=== PATIENT | male | born 1960 ===

== ENCOUNTER 2022-02-02 14:37 | Inpatient (IN) | payer BC, OTHER ==
[2022-02-02] MEDS ORDERED: SODIUM CHLORIDE 0.9% 500 ML 500 ML IV STA (14:39)
[2022-02-02] MEDS ORDERED: HYDROmorphone 0.5 MG/0.5 ML SYRINGE IVP STA ×2 (14:39→15:15)
[2022-02-02] MEDS ORDERED: DIPH,PERTUS(ACELL)TETVAC-LF 0.5 ML VIAL IM ONE ×2 (14:39→23:29)
[2022-02-02] MEDS ORDERED: SODIUM CHLORIDE 0.9% 1,000 ML IV STA (14:39)
[2022-02-02] MEDS ORDERED: TRANEXAMIC ACID IN NACL,ISO-OS 1,000 MG in SALINE 1 100ML.BAG IVPB ONE (14:53)
--- NOTE | 2022-02-02 14:53 | XR ---
EXAMINATION TYPE: XR pelvis AP view DATE OF EXAM: 02/02/2022 COMPARISON: NONE HISTORY: Pain The osseous structures are intact and the joint spaces are preserved. No acute fracture is seen. Vi sualized bowel gas pattern is nonspecific. Postsurgical change overlying the left pelvis. Benign regan earing intraosseous lesion of the left femoral neck. Hypertrophic change of the spine. IMPRESSION: 1. No acute fracture. 2. Benign appearing left femoral neck intraosseous lesion could be correlated with bone scan.
--- NOTE | 2022-02-02 14:54 | XR ---
EXAMINATION TYPE: XR chest 1V portable DATE OF EXAM: 02/02/2022 COMPARISON: NONE HISTORY: Pain TECHNIQUE: Single frontal view of the chest is obtained. FINDINGS: Heart is enlarged there is a limited inspiration. No evidence of pleural effusion or pneum othorax. Visualized osseous structures are grossly intact. Atherosclerotic change of the aorta. IMPRESSION: Cardiomegaly
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
[2022-02-02 15:18] LABS: Basophils % (A) 0 %; Eosinophils # (A) 0.1 k/uL (0-0.7); Eosinophils % (A) 1 %; HCT 28.5 % (39.0-53.0); HGB 9.5 gm/dL (13.0-17.5); Lymphocytes # (A) 1.1 k/uL (1.0-4.8); Lymphocytes % (A) 9 %; MCH 32.4 pg (25.0-35.0); MCHC 33.2 g/dL (31.0-37.0); MCV 97.6 fL (80.0-100.0); Mean Platelet Volume 8.2; Monocytes # (A) 0.3 k/uL (0-1.0); Monocytes % (A) 3 %; Neutrophils # (A) 10.6 k/uL (1.3-7.7); Neutrophils % (A) 87 %; Platelet Count 168 k/uL (150-450); RBC 2.91 m/uL (4.30-5.90); RDW 13.4 % (11.5-15.5); WBC 12.2 k/uL (3.8-10.6)
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
[2022-02-02 15:34] LABS: INR 1.1 (<1.2); Partial Thromboplastin Time 21.9 sec (22.0-30.0); Prothrombin Time 11.9 sec (9.0-12.0)
[2022-02-02] MEDS ORDERED: ePHEDrine 50 MG/ML 1 ML VIAL ONE (15:40)
[2022-02-02] MEDS ORDERED: SUCCINYLCHOLINE CHLORIDE 200 MG/10 ML VIAL IV ONE (15:40)
[2022-02-02] MEDS ORDERED: ALBUMIN HUMAN 5% (25gm) 500 ML VIAL IVPB ONE (15:40)
[2022-02-02] MEDS ORDERED: fentaNYL (PF) 50 MCG/ML 2 ML AMP ONE (15:40)
[2022-02-02] MEDS ORDERED: ETOMIDATE 2 MG/ML 10 ML VIAL ONE (15:40)
[2022-02-02] MEDS ORDERED: ROCURONIUM 10 MG/ML (5 ML VIAL) IV ONE (15:40)
[2022-02-02] MEDS ORDERED: SODIUM BICARB 8.4% 50 ML SYR (1 MEQ/ML) ONE (15:40)
[2022-02-02] MEDS ORDERED: CALCIUM CHLORIDE 100 MG/ML 10 ML SYRINGE ONE (15:40)
[2022-02-02] MEDS ORDERED: SODIUM CHLORIDE 0.9% IRRIG 1,000 ML BTL IRRIGATION ONE (15:40)
[2022-02-02] MEDS ORDERED: MIDAZOLAM 2 MG/2 ML VIAL ONE (15:40)
[2022-02-02] MEDS ORDERED: HEPARIN SODIUM,PORCINE 10,000 UNIT/ML 1 ML VIAL ONE (15:40)
[2022-02-02] MEDS ORDERED: PHENYLEPHRINE-0.9% NACL SYG 1,000 MCG/10 ML SYRINGE ONE (15:40)
[2022-02-02] MEDS ORDERED: WATER FOR INJECTION, STERILE 10 ML VIAL IV ONE (15:40)
[2022-02-02] MEDS ORDERED: SODIUM CHLORIDE 0.9% 1,000 ML IV ONE ×3 (15:42→16:53)
[2022-02-02] MEDS ORDERED: SODIUM CHLORIDE 0.9% 50 ML with ceFAZolin 2,000 MG IV ONE ×2 (15:42)
[2022-02-02] MEDS ORDERED: LACTATED RINGERS 1,000 ML IV ONE ×4 (15:42→18:48)
[2022-02-02 15:48] LABS: ALT 16 U/L (4-49); AST 24 U/L (17-59); African American GFR (CKD) 82 (>60 ml/min/1.73 sqM); Albumin 2.4 g/dL (3.5-5.0); Alcohol <10 mg/dL; Alkaline Phosphatase 52 U/L (38-126); Anion Gap 4 mmol/L; Blood Urea Nitrogen 16 mg/dL (9-20); Calcium 7.3 mg/dL (8.4-10.2); Carbon Dioxide 21 mmol/L (22-30); Chloride 107 mmol/L (98-107); Glucose 215 mg/dL (74-99); Non-African American GFR(CKD) 71 (>60 ml/min/1.73 sqM); Potassium 3.4 mmol/L (3.5-5.1); Sodium 132 mmol/L (137-145); Total Bilirubin 0.2 mg/dL (0.2-1.3); Total Protein 4.3 g/dL (6.3-8.2)
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
[2022-02-02 16:24] LABS: ABG HCO3 15 mmol/L (21-25); ABG Oxygen Saturation 99.8 % (94-97); ABG PCO2 39 mmHg (35-45); ABG PO2 197 mmHg (83-108); ABG TCO2 16 mmol/L (19-24); Allen Test Performed? Yes
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
[2022-02-02] MEDS ORDERED: METHYLENE BLUE 10 MG/ML (10 ML VIAL) IRRIGATION ONE ×2 (18:33)
[2022-02-02] MEDS ORDERED: ACETAMINOPHEN IV (For NPO) 1,000 MG in EMPTY BAG 1 BAG IVPB PRN (18:48)
[2022-02-02] MEDS ORDERED: NALOXONE 0.4 MG/ML 1 ML VIAL IV PRN (18:48)
[2022-02-02] MEDS ORDERED: ONDANSETRON 4 MG/2 ML VIAL IVP PRN (18:48)
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
[2022-02-02 19:02] LABS: Glucose,Whole Blood 100 mg/dL (70-110)
[2022-02-02 19:13] LABS: ABG Base Excess -5.8 mmol/L; ABG HCO3 21 mmol/L (21-25); ABG Oxygen Saturation 99.7 % (94-97); ABG PCO2 46 mmHg (35-45); ABG PH 7.27 (7.35-7.45); ABG PO2 180 mmHg (83-108); ABG TCO2 23 mmol/L (19-24); Allen Test Performed? Yes
[2022-02-02] MEDS: LACTATED RINGERS 1,000 ML IV SCH ×4 (19:20→22:18)
--- NOTE | 2022-02-02 19:30 | XR ---
EXAMINATION TYPE: XR chest 1V confirm line [facility] DATE OF EXAM: 02/02/2022 COMPARISON: NONE HISTORY: Postop TECHNIQUE: Single view FINDINGS: There is endotracheal tube 4 cm from the chandrakant. There is nasogastric tube in the stomach. No heart failure. There are right side posterior lateral rib fractures involving the fourth and fifth and sixth ribs. There are chest leads. No pneumothorax. Trachea is midline. No pulmonary consolidati on. There is apparent drainage catheter over the left upper quadrant. IMPRESSION: Multiple nondisplaced right-sided rib fractures. No cardiopulmonary disease. Drainage cat heter over the left upper quadrant.
[2022-02-02 19:38] LABS: HGB 9.7 gm/dL (13.0-17.5); MCH 31.8 pg (25.0-35.0); MCHC 33.4 g/dL (31.0-37.0); MCV 95.3 fL (80.0-100.0); Mean Platelet Volume 8.2; RBC 3.04 m/uL (4.30-5.90); RDW 14.9 % (11.5-15.5); WBC 11.4 k/uL (3.8-10.6)
[2022-02-02 19:46] LABS: Platelet Count 52 k/uL (150-450)
[2022-02-02] MEDS: PANTOPRAZOLE 40 MG/10 ML VIAL IV SCH (19:46)
[2022-02-02 19:56] LABS: Band Neutrophils % 14 %; Lymphocytes # (M) 0.23 k/uL (1.0-4.8); Metamyelocytes # (M) 0.11 k/uL (0); Metamyelocytes % 1 %; Monocytes # (M) 0.57 k/uL (0-1.0); Neutrophils % (M) 78 %; Nucleated Red Blood Cells 0 /100 WBC (0-0); Total Cells Counted 100
[2022-02-02] MEDS: CHLORHEXIDINE GLUCONATE 15 ML CUP MUCOUS MEM SCH (20:26)
[2022-02-02] MEDS: NOREPINEPHRINE 4 MG in SODIUM CHLORIDE 0.9% 250 ML IV SCH (20:38)
[2022-02-02 20:59] LABS: Amphetamine Screen,Urine Not Detected (NotDetected); Barbiturate Screen,Urine Not Detected (NotDetected); Benzodiazepines Screen,Urine Not Detected (NotDetected); Cocaine Screen,Urine Not Detected (NotDetected); Methadone Screen, Urine Not Detected (NotDetected); Opiate Screen,Urine Detected (NotDetected); Oxycodone Screen, Urine Not Detected (NotDetected); Phencyclidine Screen,Urine Not Detected (NotDetected); Tricyclic Antidepressant,Urine Not Detected (NotDetected); Urn Cannabinoid Scrn Not Detected (NotDetected)
[2022-02-02 22:24] LABS: INR 1.2 (<1.2); Partial Thromboplastin Time 23.4 sec (22.0-30.0); Prothrombin Time 12.3 sec (9.0-12.0)
[2022-02-02] MEDS: HYDROmorphone 0.5 MG/0.5 ML SYRINGE IVP PRN (22:31)
[2022-02-02 22:48] LABS: ALT 35 U/L (4-49); AST 60 U/L (17-59); African American GFR (CKD) >90 (>60 ml/min/1.73 sqM); Albumin 2.6 g/dL (3.5-5.0); Alkaline Phosphatase 37 U/L (38-126); Anion Gap 5 mmol/L; Blood Urea Nitrogen 14 mg/dL (9-20); Calcium 7.4 mg/dL (8.4-10.2); Carbon Dioxide 19 mmol/L (22-30); Chloride 113 mmol/L (98-107); Glucose 149 mg/dL (74-99); Magnesium 1.4 mg/dL (1.6-2.3); Non-African American GFR(CKD) >90 (>60 ml/min/1.73 sqM); Phosphorus 3.7 mg/dL (2.5-4.5); Potassium 4.1 mmol/L (3.5-5.1); Sodium 137 mmol/L (137-145); Total Bilirubin 1.3 mg/dL (0.2-1.3); Total Protein 4.2 g/dL (6.3-8.2)
[2022-02-02] MEDS ORDERED: Magnesium Replacement Protocol 1 EACH MISC MISCELLANE PRN (23:18)
[2022-02-02] MEDS: MAGNESIUM SULFATE-D5W PMX 1 GM in DEXTROSE/WATER 1 100ML.BAG IVPB SCH (23:24)
[2022-02-02] MEDS: HEPARIN SODIUM,PORCINE/PF 5,000 UNIT/0.5 ML SYRINGE SQ SCH (23:29)
[2022-02-03] MEDS: MAGNESIUM SULFATE-D5W PMX 1 GM in DEXTROSE/WATER 1 100ML.BAG IVPB SCH ×2 (00:31→01:42)
[2022-02-03] MEDS ORDERED: DIPH,PERTUS(ACELL)TETVAC-LF 0.5 ML VIAL IM ONE (00:45)
[2022-02-03 00:57] LABS: Basophils % (A) 0 %; Eosinophils % (A) 0 %; HCT 42.3 % (39.0-53.0); Lymphocytes # (A) 0.7 k/uL (1.0-4.8); Lymphocytes % (A) 4 %; MCH 31.5 pg (25.0-35.0); MCHC 33.6 g/dL (31.0-37.0); MCV 93.6 fL (80.0-100.0); Mean Platelet Volume 8.5; Monocytes # (A) 0.8 k/uL (0-1.0); Monocytes % (A) 6 %; Neutrophils # (A) 13.3 k/uL (1.3-7.7); Neutrophils % (A) 89 %; RBC 4.52 m/uL (4.30-5.90); RDW 15.2 % (11.5-15.5)
[2022-02-03 01:16] LABS: HGB 14.2 gm/dL (13.0-17.5); Platelet Count 125 k/uL (150-450)
[2022-02-03] MEDS: HYDROmorphone 0.5 MG/0.5 ML SYRINGE IVP PRN ×5 (03:22→18:31)
[2022-02-03 05:20] LABS: Basophils % (A) 0 %; Eosinophils % (A) 0 %; HCT 39.7 % (39.0-53.0); HGB 13.4 gm/dL (13.0-17.5); Lymphocytes # (A) 0.7 k/uL (1.0-4.8); Lymphocytes % (A) 5 %; MCH 31.4 pg (25.0-35.0); MCHC 33.8 g/dL (31.0-37.0); Mean Platelet Volume 8.4; Monocytes # (A) 0.9 k/uL (0-1.0); Monocytes % (A) 7 %; Neutrophils # (A) 11.2 k/uL (1.3-7.7); Neutrophils % (A) 87 %; Platelet Count 113 k/uL (150-450); RBC 4.28 m/uL (4.30-5.90); RDW 15.2 % (11.5-15.5); WBC 12.9 k/uL (3.8-10.6)
[2022-02-03 05:44] LABS: ALT 33 U/L (4-49); AST 57 U/L (17-59); African American GFR (CKD) >90 (>60 ml/min/1.73 sqM); Albumin 2.5 g/dL (3.5-5.0); Alkaline Phosphatase 34 U/L (38-126); Anion Gap 4 mmol/L; Blood Urea Nitrogen 16 mg/dL (9-20); Calcium 7.2 mg/dL (8.4-10.2); Carbon Dioxide 21 mmol/L (22-30); Chloride 111 mmol/L (98-107); Glucose 132 mg/dL (74-99); Magnesium 2.2 mg/dL (1.6-2.3); Non-African American GFR(CKD) 88 (>60 ml/min/1.73 sqM); Phosphorus 4.2 mg/dL (2.5-4.5); Potassium 4.5 mmol/L (3.5-5.1); Sodium 136 mmol/L (137-145); Total Bilirubin 0.6 mg/dL (0.2-1.3); Total Protein 4.2 g/dL (6.3-8.2)
[2022-02-03 05:51] LABS: ABG Base Excess -3.5 mmol/L; ABG HCO3 22 mmol/L (21-25); ABG Oxygen Saturation 98.3 % (94-97); ABG PCO2 41 mmHg (35-45); ABG PH 7.35 (7.35-7.45); ABG PO2 91 mmHg (83-108); ABG TCO2 23 mmol/L (19-24)
[2022-02-03 05:53] LABS: Allen Test Performed? No
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
[2022-02-03] MEDS: CHLORHEXIDINE GLUCONATE 15 ML CUP MUCOUS MEM SCH (08:01)
[2022-02-03] MEDS: PANTOPRAZOLE 40 MG/10 ML VIAL IV SCH (08:01)
[2022-02-03] MEDS: NOREPINEPHRINE 4 MG in SODIUM CHLORIDE 0.9% 250 ML IV SCH (08:03)
--- NOTE | 2022-02-03 08:38 | XR ---
EXAMINATION TYPE: XR chest 1V portable DATE OF EXAM: 02/03/2022 COMPARISON: 02/02/2022 HISTORY: Post intubation TECHNIQUE: Single frontal view of the chest is obtained. FINDINGS: ET and NG tube stable. Suggestion of a surgical drain overlying the left abdomen or likely surgical clips are seen. There is a left lower lobe infiltrate and small effusion. No sizable pneumo thorax. Subsegmental changes right base. Hypertrophic changes of the spine. Atherosclerotic change ao rta. Arthropathy of the shoulders. Rib fractures not as well-seen on today's exam.. IMPRESSION: 1. Left lower lobe infiltrate and small effusion. 2. Suspect right basilar atelectasis.
--- NOTE | 2022-02-03 08:56 | US ---
EXAMINATION TYPE: US chest DATE OF EXAM: 02/03/2022 COMPARISON: NONE CLINICAL HISTORY: Markings for thoracentesis by pulmonary staff. Pleural effusion. TECHNIQUE: Targeted ultrasound of the posterior lower bilateral hemithoraces EXAM MEASUREMENTS: Scanned bilateral chest no fluid visualized. Pulmonologists are able to review the images in the patient?s EMR. IMPRESSIONS: No sizable pleural fluid
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
[2022-02-03] MEDS: HEPARIN SODIUM,PORCINE/PF 5,000 UNIT/0.5 ML SYRINGE SQ SCH ×3 (10:14→20:48)
[2022-02-03] MEDS: LACTATED RINGERS 500 ML IV SCH (10:15)
[2022-02-03 10:42] LABS: ABG Base Excess -2.4 mmol/L; ABG HCO3 23 mmol/L (21-25); ABG Oxygen Saturation 96.5 % (94-97); ABG PCO2 37 mmHg (35-45); ABG PO2 80 mmHg (83-108); ABG TCO2 24 mmol/L (19-24)
[2022-02-03 10:44] LABS: Allen Test Performed? no
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
[2022-02-03] MEDS: LEVOTHYROXINE IVP 100 MCG/5 ML VIAL IV SCH ×2 (15:17)
--- NOTE | 2022-02-03 19:03 | CA ---
Transthoracic Echo Report Name: Daren Godfrey Age: 62 Gender: M : 1960 Exam Date: 02/03/2022 09:13 Exam Location: [place] Echo Ht (in): 70 Wt (lb): 222 Ordering Physician: Ankur Fitzpatrick MD ([id number]) Attending/Referring Phys: Sieve Grader Tender Junie Castellanos RDCS Procedure CPT: Indications: Hypotension Cardiac Hx: Technical Quality: Good Contrast 1: Total Dose (mL): Contrast 2: Total Dose (mL): MEASUREMENTS (Male / Female) Normal Values 2D ECHO LV Diastolic Diameter PLAX 6.4 cm 4.2 - 5.9 / 3.9 - 5.3 cm LV Systolic Diameter PLAX 6.1 cm IVS Diastolic Thickness 1.2 cm 0.6 - 1.0 / 0.6 - 0.9 cm LVPW Diastolic Thickness 1.2 cm 0.6 - 1.0 / 0.6 - 0.9 cm LV Relative Wall Thickness 0.4 RV Internal Dim ED PLAX 3.1 cm LA Systolic Diameter LX 4.1 cm 3.0 - 4.0 / 2.7 - 3.8 cm LA Volume 56.3 cm??? 18 - 58 / 22 - 52 cm??? M-MODE Aortic Root Diameter MM 3.6 cm MV E Point Septal Separation 2.3 cm AV Cusp Separation MM 2.3 cm DOPPLER AV Peak Velocity 128.4 cm/s AV Peak Gradient 6.6 mmHg AI Peak Velocity 142.5 cm/s AI Peak Gradient 8.1 mmHg AI Pressure Half Time 422.5 ms MV Area PHT 9.7 cm??? MV Deceleration Time 105.8 ms MV E' Velocity 4.0 cm/s TR Peak Velocity 226.7 cm/s TR Peak Gradient 20.6 mmHg Right Ventricular Systolic Press 25.6 mmHg FINDINGS Left Ventricle Left ventricular ejection fraction is estimated at 15-20 %. Mildly increased septal wall thickness. Mildly increased left ventricular diastolic diameter. Severely reduced global left ventricular systolic function. Right Ventricle Normal right ventricular size and function. Right ventricular systolic pressure within normal limits. Right Atrium Normal right atrial size. Left Atrium Normal left atrial size. No evidence for an atrial septal defect. Mitral Valve Structurally normal mitral valve. Mild to moderate MR Aortic Valve Trileaflet aortic valve. No aortic valve stenosis or regurgitation. Tricuspid Valve Structurally normal tricuspid valve. Mild tricuspid regurgitation. Pulmonic Valve Pulmonic valve not well visualized. Pericardium Normal pericardium. Aorta Normal size aortic root and proximal ascending aorta. CONCLUSIONS Severely dilated left ventricle with severely impaired all the function and EF of 15-20% and overall global hypokinesia [id number] mitral regurgitation Previewed by: Dr. Amandeep Car MD (Electronically Signed) Final Date: 03 February 2022 19:03
[2022-02-03] MEDS: HYDROmorphone 1 MG/ML 1 ML SYRINGE IVP PRN (22:06)
[2022-02-04] MEDS: HYDROmorphone 0.5 MG/0.5 ML SYRINGE IVP PRN ×6 (02:39→22:57)
[2022-02-04 05:15] LABS: Basophils % (A) 0 %; Eosinophils # (A) 0.1 k/uL (0-0.7); Eosinophils % (A) 0 %; HCT 36.2 % (39.0-53.0); HGB 12.4 gm/dL (13.0-17.5); Lymphocytes # (A) 0.6 k/uL (1.0-4.8); Lymphocytes % (A) 4 %; MCH 31.8 pg (25.0-35.0); MCHC 34.2 g/dL (31.0-37.0); Mean Platelet Volume 9.2; Monocytes % (A) 6 %; Neutrophils # (A) 14.1 k/uL (1.3-7.7); Neutrophils % (A) 88 %; Platelet Count 108 k/uL (150-450); RBC 3.89 m/uL (4.30-5.90); RDW 15.1 % (11.5-15.5)
[2022-02-04 05:20] LABS: African American GFR (CKD) >90 (>60 ml/min/1.73 sqM); Anion Gap -1 mmol/L; Blood Urea Nitrogen 20 mg/dL (9-20); Calcium 7.4 mg/dL (8.4-10.2); Carbon Dioxide 27 mmol/L (22-30); Chloride 110 mmol/L (98-107); Glucose 137 mg/dL (74-99); Non-African American GFR(CKD) 89 (>60 ml/min/1.73 sqM); Potassium 4.2 mmol/L (3.5-5.1); Sodium 136 mmol/L (137-145)
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
[2022-02-04] MEDS: PANTOPRAZOLE 40 MG/10 ML VIAL IV SCH (08:06)
[2022-02-04] MEDS: ASPIRIN 81 MG PO SCH (11:17)
[2022-02-04] MEDS: HEPARIN SODIUM,PORCINE/PF 5,000 UNIT/0.5 ML SYRINGE SQ SCH ×3 (11:18→22:59)
[2022-02-04] MEDS: METOPROLOL SUCCINATE (ER) 25 MG TAB.ER.24H PO SCH (11:20)
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
[2022-02-04] MEDS: NOREPINEPHRINE 4 MG in SODIUM CHLORIDE 0.9% 250 ML IV SCH (17:52)
[2022-02-04] MEDS: LACTATED RINGERS 500 ML IV SCH (20:41)
[2022-02-05] MEDS: HYDROmorphone 1 MG/ML 1 ML SYRINGE IVP PRN ×3 (02:07→16:44)
[2022-02-05 04:41] LABS: Basophils % (A) 0 %; Eosinophils # (A) 0.1 k/uL (0-0.7); Eosinophils % (A) 1 %; HCT 31.7 % (39.0-53.0); Lymphocytes # (A) 0.7 k/uL (1.0-4.8); Lymphocytes % (A) 5 %; MCH 32.5 pg (25.0-35.0); MCHC 34.7 g/dL (31.0-37.0); MCV 93.9 fL (80.0-100.0); Mean Platelet Volume 9.6; Monocytes # (A) 0.8 k/uL (0-1.0); Monocytes % (A) 5 %; Neutrophils # (A) 12.3 k/uL (1.3-7.7); Neutrophils % (A) 87 %; Platelet Count 116 k/uL (150-450); RBC 3.38 m/uL (4.30-5.90); RDW 14.5 % (11.5-15.5); WBC 14.1 k/uL (3.8-10.6)
[2022-02-05 05:12] LABS: African American GFR (CKD) >90 (>60 ml/min/1.73 sqM); Anion Gap 2 mmol/L; Blood Urea Nitrogen 18 mg/dL (9-20); Calcium 7.4 mg/dL (8.4-10.2); Carbon Dioxide 27 mmol/L (22-30); Chloride 109 mmol/L (98-107); Glucose 106 mg/dL (74-99); Non-African American GFR(CKD) >90 (>60 ml/min/1.73 sqM); Potassium 3.9 mmol/L (3.5-5.1); Sodium 138 mmol/L (137-145)
[2022-02-05] MEDS: HYDROmorphone 0.5 MG/0.5 ML SYRINGE IVP PRN ×4 (05:18→21:01)
[2022-02-05] MEDS ORDERED: Potassium Replacement Protocol 1 EACH MISC MISCELLANE PRN (05:21)
[2022-02-05] MEDS ORDERED: POTASSIUM CHLORIDE ER 20 MEQ TAB.ER PO SCH (06:00)
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
--- NOTE | 2022-02-05 08:03 | XR ---
EXAMINATION TYPE: XR chest 1V portable DATE OF EXAM: 02/05/2022 COMPARISON: 02/03/2022 HISTORY: Abnormal x-ray TECHNIQUE: Single frontal view of the chest is obtained. FINDINGS: ET and NG tube have been removed. Suggestion of a surgical drain overlying the left abdome n or likely surgical clips are seen. There is a left lower lobe infiltrate and small effusion. No siz able pneumothorax. Subsegmental changes right base. Hypertrophic changes of the spine. Atheroscleroti c change aorta. Arthropathy of the shoulders. Rib fractures not as well-seen on today's exam.. IMPRESSION: Bilateral infiltrate and pleural effusion. Differential includes CHF or pneumonia.
[2022-02-05] MEDS: HEPARIN SODIUM,PORCINE/PF 5,000 UNIT/0.5 ML SYRINGE SQ SCH ×2 (08:18→16:39)
[2022-02-05] MEDS: PANTOPRAZOLE 40 MG/10 ML VIAL IV SCH (08:19)
[2022-02-05] MEDS: ASPIRIN 81 MG PO SCH (08:19)
[2022-02-05] MEDS: METOPROLOL SUCCINATE (ER) 25 MG TAB.ER.24H PO SCH (08:19)
[2022-02-05 11:07] VITALS: BMI 30.6
[2022-02-05] MEDS: ACETAMINOPHEN IV (For NPO) 1,000 MG in EMPTY BAG 1 BAG IVPB SCH ×2 (11:21→18:24)
[2022-02-05] MEDS: LACTATED RINGERS 500 ML IV SCH (11:22)
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
[2022-02-05] MEDS: LEVOTHYROXINE IVP 100 MCG/5 ML VIAL IV SCH ×2 (13:45→13:46)
--- NOTE | 2022-02-05 14:03 | XR ---
EXAMINATION TYPE: XR hand complete bilateral DATE OF EXAM: 02/05/2022 COMPARISON: NONE HISTORY: Pain TECHNIQUE: Three views are submitted. FINDINGS: Right hand: The osseous structures are intact. Severe arthropathy of the first MCP. There are cystic changes involving the carpal bones. And there is no acute fracture or dislocation. Left hand: Moderate arthropathy first MCP. Cystic changes involving the lunate. Severe arthropathy of the DIP joint fifth digit. IMPRESSION: 1. Arthropathy bilaterally as discussed above. 2. No acute fracture.
[2022-02-05] MEDS: NOREPINEPHRINE 4 MG in SODIUM CHLORIDE 0.9% 250 ML IV SCH (20:03)
[2022-02-06] MEDS: HYDROmorphone 0.5 MG/0.5 ML SYRINGE IVP PRN ×4 (00:39→23:44)
[2022-02-06] MEDS: ACETAMINOPHEN IV (For NPO) 1,000 MG in EMPTY BAG 1 BAG IVPB SCH ×2 (00:40→05:47)
[2022-02-06] MEDS: HEPARIN SODIUM,PORCINE/PF 5,000 UNIT/0.5 ML SYRINGE SQ SCH ×4 (00:40→23:44)
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
[2022-02-06 07:30] LABS: African American GFR (CKD) >90 (>60 ml/min/1.73 sqM); Anion Gap 1 mmol/L; Blood Urea Nitrogen 19 mg/dL (9-20); Calcium 7.4 mg/dL (8.4-10.2); Carbon Dioxide 27 mmol/L (22-30); Chloride 109 mmol/L (98-107); Glucose 103 mg/dL (74-99); Non-African American GFR(CKD) >90 (>60 ml/min/1.73 sqM); Potassium 3.9 mmol/L (3.5-5.1); Sodium 137 mmol/L (137-145)
[2022-02-06 07:31] LABS: HCT 31.7 % (39.0-53.0); HGB 10.8 gm/dL (13.0-17.5); MCH 31.7 pg (25.0-35.0); MCV 93.3 fL (80.0-100.0); Mean Platelet Volume 9.1; Platelet Count 170 k/uL (150-450); RDW 14.5 % (11.5-15.5); WBC 11.7 k/uL (3.8-10.6)
[2022-02-06] MEDS: HYDROmorphone 1 MG/ML 1 ML SYRINGE IVP PRN ×3 (08:54→20:26)
[2022-02-06] MEDS: PANTOPRAZOLE 40 MG/10 ML VIAL IV SCH (08:54)
[2022-02-06] MEDS: ASPIRIN 81 MG PO SCH (08:56)
[2022-02-06] MEDS: METOPROLOL SUCCINATE (ER) 25 MG TAB.ER.24H PO SCH (08:56)
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
--- NOTE | 2022-02-06 14:10 | XR ---
EXAMINATION TYPE: XR ankle complete LT DATE OF EXAM: 02/06/2022 COMPARISON: NONE HISTORY: Pain TECHNIQUE: 3 views FINDINGS: There is a 1.5 cm chip fracture of the medial aspect of the talus. This is seen inferior to the medial malleolus. There is no dislocation. Ankle joint space is normal. There is minimal Matteson s calcaneal spurring and calcification. The calcaneus is intact. IMPRESSION: There is nondisplaced avulsion large chip fracture of the medial talus.
[2022-02-06] MEDS: LACTATED RINGERS 500 ML IV SCH (14:16)
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
[2022-02-06] MEDS: NOREPINEPHRINE 4 MG in SODIUM CHLORIDE 0.9% 250 ML IV SCH (20:23)
[2022-02-07] MEDS: HYDROmorphone 0.5 MG/0.5 ML SYRINGE IVP PRN ×5 (04:27→18:01)
--- NOTE | 2022-02-07 07:37 | XR ---
EXAMINATION TYPE: XR chest 1V portable DATE OF EXAM: 02/07/2022 HISTORY: Shortness of breath. COMPARISON: 02/05/2022 TECHNIQUE: Single view of the chest is submitted. FINDINGS: Demonstrated are scattered senescent parenchymal change. Resolution of pulmonary venous congestion. Continued cardiomegaly and small bilateral pleural effusio ns. Findings are felt to reflect improving congestive failure. Hilar and mediastinal structures are within normal limits. Degenerative changes are seen of the dorsal spine. IMPRESSION: 1. Resolution of pulmonary venous congestion. Continued cardiomegaly and small bilateral pleural eff usions. Findings are felt to reflect improving congestive failure.
[2022-02-07] MEDS: ASPIRIN 81 MG PO SCH (07:56)
[2022-02-07] MEDS: METOPROLOL SUCCINATE (ER) 25 MG TAB.ER.24H PO SCH (07:56)
[2022-02-07] MEDS: HEPARIN SODIUM,PORCINE/PF 5,000 UNIT/0.5 ML SYRINGE SQ SCH ×2 (07:57→15:56)
[2022-02-07] MEDS: PANTOPRAZOLE 40 MG/10 ML VIAL IV SCH (07:57)
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
[2022-02-07] MEDS: LEVOTHYROXINE IVP 100 MCG/5 ML VIAL IV SCH ×2 (12:10)
--- NOTE | 2022-02-07 13:43 | XR ---
EXAMINATION TYPE: XR shoulder complete RT DATE OF EXAM: 02/07/2022 CLINICAL HISTORY: pain TECHNIQUE: Three views of the right shoulder are obtained. COMPARISON: None FINDINGS: There is no acute fracture/dislocation evident. The acromioclavicular and glenohumeral abdoulaye int spaces appear mildly narrowed. Calcification at the insertion of the supraspinatus tendon compati ble with calcific tendinitis. The visualized ribs are intact and unremarkable. IMPRESSION: 1. There is no acute fracture or dislocation. 2. Calcific tendinitis. ICD 10 NO FRACTURE, INITIAL EVALUATION
--- NOTE | 2022-02-07 13:44 | XR ---
EXAMINATION TYPE: XR humerus RT DATE OF EXAM: 02/07/2022 CLINICAL HISTORY: pain COMPARISON: NONE TECHNIQUE: Frontal and lateral images of the right humerus are obtained. FINDINGS: There is no acute fracture/dislocation evident. The joint spaces appear within normal limi ts. Rotator cuff calcific tendinitis. IMPRESSION: There is no acute fracture or dislocation.ICD 10 NO FRACTURE, INITIAL EVALUATION
--- NOTE | 2022-02-07 13:46 | XR ---
EXAMINATION TYPE: XR elbow complete RT DATE OF EXAM: 02/07/2022 CLINICAL HISTORY: pain TECHNIQUE: Frontal, lateral and oblique images of the right elbow are obtained. COMPARISON: None. FINDINGS: There is no acute fracture/dislocation evident of the elbow. No abnormal fat pad signs ar e seen. The overlying soft tissue appears unremarkable. IMPRESSION: There is no acute fracture or dislocation of the elbow. ICD 10 NO FRACTURE, INITIAL EVALUATION
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
[2022-02-07] MEDS: LACTATED RINGERS 500 ML IV SCH (17:39)
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
[2022-02-07] MEDS: HYDROmorphone 1 MG/ML 1 ML SYRINGE IVP PRN (20:20)
[2022-02-07] MEDS: NOREPINEPHRINE 4 MG in SODIUM CHLORIDE 0.9% 250 ML IV SCH (20:27)
[2022-02-08] MEDS: HYDROmorphone 0.5 MG/0.5 ML SYRINGE IVP PRN ×6 (00:51→22:34)
[2022-02-08] MEDS: HEPARIN SODIUM,PORCINE/PF 5,000 UNIT/0.5 ML SYRINGE SQ SCH ×3 (00:54→15:59)
[2022-02-08] MEDS: HYDROmorphone 1 MG/ML 1 ML SYRINGE IVP PRN (06:06)
[2022-02-08] MEDS: METOPROLOL SUCCINATE (ER) 25 MG TAB.ER.24H PO SCH (08:08)
[2022-02-08] MEDS: PANTOPRAZOLE 40 MG/10 ML VIAL IV SCH (08:08)
[2022-02-08] MEDS: ASPIRIN 81 MG PO SCH (08:08)
[2022-02-08] MEDS: DOCUSATE 100 MG CAP PO SCH ×2 (10:38→22:48)
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
[2022-02-08] MEDS: METOCLOPRAMIDE 5 MG/ML 2 ML VIAL IVP SCH ×2 (14:26→18:28)
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
[2022-02-08] MEDS: LACTATED RINGERS 500 ML IV SCH (18:37)
[2022-02-08] MEDS: NOREPINEPHRINE 4 MG in SODIUM CHLORIDE 0.9% 250 ML IV SCH (19:47)
[2022-02-09] MEDS: HYDROcodone/APAP 5-325MG 1 EACH TAB PO PRN ×3 (02:45→15:30)
[2022-02-09] MEDS: HEPARIN SODIUM,PORCINE/PF 5,000 UNIT/0.5 ML SYRINGE SQ SCH ×3 (05:04→17:03)
[2022-02-09] MEDS: METOCLOPRAMIDE 5 MG/ML 2 ML VIAL IVP SCH ×4 (05:05→17:03)
[2022-02-09] MEDS: HYDROmorphone 0.5 MG/0.5 ML SYRINGE IVP PRN ×4 (07:08→20:31)
[2022-02-09] MEDS: LEVOTHYROXINE 112 MCG TAB PO SCH (07:08)
[2022-02-09 07:35] LABS: Basophils % (A) 1 %; Eosinophils # (A) 0.3 k/uL (0-0.7); Eosinophils % (A) 4 %; Lymphocytes # (A) 0.8 k/uL (1.0-4.8); Lymphocytes % (A) 9 %; MCH 32.3 pg (25.0-35.0); MCHC 34.3 g/dL (31.0-37.0); MCV 94.1 fL (80.0-100.0); Mean Platelet Volume 8.4; Monocytes # (A) 0.7 k/uL (0-1.0); Monocytes % (A) 8 %; Neutrophils # (A) 6.5 k/uL (1.3-7.7); Neutrophils % (A) 76 %; Platelet Count 330 k/uL (150-450); RBC 3.72 m/uL (4.30-5.90); WBC 8.6 k/uL (3.8-10.6)
[2022-02-09 07:52] LABS: African American GFR (CKD) >90 (>60 ml/min/1.73 sqM); Anion Gap 6 mmol/L; Blood Urea Nitrogen 19 mg/dL (9-20); Calcium 7.5 mg/dL (8.4-10.2); Carbon Dioxide 27 mmol/L (22-30); Chloride 102 mmol/L (98-107); Glucose 107 mg/dL (74-99); Non-African American GFR(CKD) >90 (>60 ml/min/1.73 sqM); Potassium 3.7 mmol/L (3.5-5.1); Sodium 135 mmol/L (137-145)
[2022-02-09] MEDS: METOPROLOL SUCCINATE (ER) 25 MG TAB.ER.24H PO SCH (08:49)
[2022-02-09] MEDS: ASPIRIN 81 MG PO SCH (08:49)
[2022-02-09] MEDS: DOCUSATE 100 MG CAP PO SCH ×2 (08:49→20:30)
[2022-02-09] MEDS: PANTOPRAZOLE 40 MG/10 ML VIAL IV SCH (08:50)
[2022-02-09] MEDS: LACTATED RINGERS 500 ML IV SCH (08:54)
--- NOTE | 2022-02-09 10:15 | XR ---
EXAMINATION TYPE: XR chest 1V portable DATE OF EXAM: 02/09/2022 COMPARISON: 02/07/2022 HISTORY: Shortness of breath TECHNIQUE: Single frontal view of the chest is obtained. FINDINGS: Elevated right hemidiaphragm with bilateral infiltrate and small effusion. Heart is enlarg ed with no overt failure or pneumothorax. Postsurgical marcos overlying the abdomen with prominent b owel loops and suspected drain in the left upper quadrant. Arthropathy of the shoulders. IMPRESSION: 1. Cardiomegaly with bilateral infiltrates and small effusions stable. 2. Persistent dilated bowel in the abdomen with findings suggestive of recent surgery.
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
[2022-02-10] MEDS: HYDROcodone/APAP 5-325MG 1 EACH TAB PO PRN ×3 (00:18→17:06)
[2022-02-10] MEDS: HEPARIN SODIUM,PORCINE/PF 5,000 UNIT/0.5 ML SYRINGE SQ SCH ×4 (00:19→23:36)
[2022-02-10] MEDS: METOCLOPRAMIDE 5 MG/ML 2 ML VIAL IVP SCH ×5 (00:21→23:36)
[2022-02-10] MEDS: LEVOTHYROXINE 112 MCG TAB PO SCH (06:14)
[2022-02-10] MEDS: HYDROmorphone 0.5 MG/0.5 ML SYRINGE IVP PRN ×3 (06:14→20:15)
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
[2022-02-10] MEDS: ASPIRIN 81 MG PO SCH (09:43)
[2022-02-10] MEDS: METOPROLOL SUCCINATE (ER) 25 MG TAB.ER.24H PO SCH (09:43)
[2022-02-10] MEDS: PANTOPRAZOLE 40 MG/10 ML VIAL IV SCH (09:44)
[2022-02-10] MEDS: DOCUSATE 100 MG CAP PO SCH ×2 (09:45→20:15)
--- NOTE | 2022-02-10 10:26 | CT ---
EXAMINATION TYPE: CT ankle LT wo con DATE OF EXAM: 02/10/2022 COMPARISON: Left ankle x-ray 4 days ago HISTORY: left ankle fx CT DLP: 155 mGycm Automated exposure control for dose reduction was used. Technique: CT performed left ankle without contrast. FINDINGS: Overlying splint material is present. There is redemonstration of age-indeterminate roughly 1.8 x 1.3 x 1.1 cm ossific fragment along the medial aspect of the talus with a few adjacent tiny os sific fragments noted. Fracture lines slightly more ill-defined suggesting more acute or subacute inj ury versus the well-defined old avulsion type fracture or unfused apophysis measuring 8 x 6 mm from t he distal aspect of the lateral malleolus. Ankle mortise symmetry is fairly well-maintained. The post erior malleolus is intact. There is mild to moderate diffuse subcutaneous edema and soft tissue swelling noted in the ankle and hindfoot becoming more severe along the midfoot levels towards the metatarsals. No additional bony fr acture is seen. Normal sinus tarsi fat is present. Subtalar joint is maintained. IMPRESSION: As above.
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
[2022-02-10] MEDS: LACTATED RINGERS 500 ML IV SCH (16:56)
[2022-02-11] MEDS: METOCLOPRAMIDE 5 MG/ML 2 ML VIAL IVP SCH ×2 (05:44→11:30)
[2022-02-11] MEDS: HYDROcodone/APAP 5-325MG 1 EACH TAB PO PRN ×2 (05:44→11:30)
[2022-02-11] MEDS: LEVOTHYROXINE 112 MCG TAB PO SCH (05:44)
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
[2022-02-11] MEDS: HEPARIN SODIUM,PORCINE/PF 5,000 UNIT/0.5 ML SYRINGE SQ SCH ×2 (08:30→16:39)
[2022-02-11] MEDS: PANTOPRAZOLE 40 MG/10 ML VIAL IV SCH (08:30)
[2022-02-11] MEDS: HYDROmorphone 0.5 MG/0.5 ML SYRINGE IVP PRN (08:30)
[2022-02-11] MEDS: DOCUSATE 100 MG CAP PO SCH ×2 (08:30→21:33)
[2022-02-11] MEDS: METOPROLOL SUCCINATE (ER) 25 MG TAB.ER.24H PO SCH (08:30)
[2022-02-11] MEDS: ASPIRIN 81 MG PO SCH (08:30)
[2022-02-11] MEDS: LACTATED RINGERS 500 ML IV SCH (08:32)
[2022-02-11] MEDS ORDERED: IBUPROFEN 600 MG TAB PO PRN (11:46)
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
[2022-02-11] MEDS: HYDROcodone/APAP 7.5-325MG 1 EACH TAB PO PRN ×2 (15:46→20:12)
[2022-02-11] MEDS: MELATONIN 3 MG TABLET PO SCH (21:33)
[2022-02-12] MEDS: HEPARIN SODIUM,PORCINE/PF 5,000 UNIT/0.5 ML SYRINGE SQ SCH ×3 (00:13→16:58)
[2022-02-12] MEDS: HYDROcodone/APAP 7.5-325MG 1 EACH TAB PO PRN ×5 (00:25→20:24)
[2022-02-12] MEDS: LEVOTHYROXINE 112 MCG TAB PO SCH (05:54)
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
[2022-02-12] MEDS: METOPROLOL SUCCINATE (ER) 25 MG TAB.ER.24H PO SCH (09:38)
[2022-02-12] MEDS: DOCUSATE 100 MG CAP PO SCH ×2 (09:38→22:03)
[2022-02-12] MEDS: PANTOPRAZOLE 40 MG/10 ML VIAL IV SCH (09:39)
[2022-02-12] MEDS: ASPIRIN 81 MG PO SCH (09:39)
[2022-02-12] MEDS: LACTATED RINGERS 500 ML IV SCH (09:40)
[2022-02-12] MEDS ORDERED: HYDROmorphone 0.5 MG/0.5 ML SYRINGE IVP PRN (10:26)
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
[2022-02-12] MEDS: IBUPROFEN 600 MG TAB PO SCH ×2 (13:36→22:04)
[2022-02-12] MEDS: TAMSULOSIN 0.4 MG CAP.ER.24H PO SCH (16:11)
[2022-02-12] MEDS: MELATONIN 3 MG TABLET PO SCH (22:03)
[2022-02-13] MEDS: HEPARIN SODIUM,PORCINE/PF 5,000 UNIT/0.5 ML SYRINGE SQ SCH ×3 (00:29→12:44)
[2022-02-13] MEDS: HYDROcodone/APAP 7.5-325MG 1 EACH TAB PO PRN ×2 (00:29→09:46)
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
[2022-02-13] MEDS: LEVOTHYROXINE 112 MCG TAB PO SCH (06:27)
[2022-02-13 08:34] VITALS: BP 124/63; PULSE 77; RESP 16; TEMP 97.9
[2022-02-13] MEDS: PANTOPRAZOLE 40 MG/10 ML VIAL IV SCH (09:45)
[2022-02-13] MEDS: DOCUSATE 100 MG CAP PO SCH (09:46)
[2022-02-13] MEDS: TAMSULOSIN 0.4 MG CAP.ER.24H PO SCH (09:46)
[2022-02-13] MEDS: IBUPROFEN 600 MG TAB PO SCH ×2 (09:46→12:44)
[2022-02-13] MEDS: ASPIRIN 81 MG PO SCH (09:47)
[2022-02-13] MEDS: METOPROLOL SUCCINATE (ER) 25 MG TAB.ER.24H PO SCH (09:47)
[2022-02-13] MEDS: LACTATED RINGERS 500 ML IV SCH (09:47)
--- NOTE | 2022-02-13 10:00 | P.PN ---
Progress Note - Text Progress Note Date: 02/13/22 Patient is doing much better today. His abdominal bowel movement. He wants to go home. On exam vital signs are stable. Abdomen soft. Incisions clean dry intact. RAFITA drain has minimal output. The patient be discharged home. She will follow-up Dr. Harris next week.
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
[2022-02-14] MEDS ORDERED: LEVOTHYROXINE 112 MCG TAB PO SCH (06:30)
== END 2022-02-13 13:41 | disposition home or self-care (01) | DRG 957 ==
LOC: EC 14:37 → 3SCARD 15:43 → 2SICU 16:03 → 3SCARD 02-06 11:42
PROVIDERS: ADMIT Surgery; ATTEND Surgery
PROC: 0T7C8ZZ Dilation of Bladder Neck, Via Natural or Artificial Opening Endoscopic (ICD-10-PCS; 2022-02-02)
PROC: 0T9B80Z Drainage of Bladder with Drainage Device, Via Natural or Artificial Opening Endoscopic (ICD-10-PCS; 2022-02-02)
PROC: 30243H0 Transfusion of Autologous Whole Blood into Central Vein, Percutaneous Approach (ICD-10-PCS; 2022-02-02)
PROC: 0BH18EZ Insertion of Endotracheal Airway into Trachea, Via Natural or Artificial Opening Endoscopic (ICD-10-PCS; 2022-02-02)
PROC: 5A1945Z Respiratory Ventilation, 24-96 Consecutive Hours (ICD-10-PCS; 2022-02-02)
PROC: 07TP0ZZ Resection of Spleen, Open Approach (ICD-10-PCS; principal; 2022-02-02 15:08)
PROC: 0WJG0ZZ Inspection of Peritoneal Cavity, Open Approach (ICD-10-PCS; 2022-02-02 15:08)
PROC: 3E0234Z Introduction of Serum, Toxoid and Vaccine into Muscle, Percutaneous Approach (ICD-10-PCS; 2022-02-03)
PROC: 30233N1 Transfusion of Nonautologous Red Blood Cells into Peripheral Vein, Percutaneous Approach (ICD-10-PCS; 2022-02-03)
PROC: 30233K1 Transfusion of Nonautologous Frozen Plasma into Peripheral Vein, Percutaneous Approach (ICD-10-PCS; 2022-02-03)
PROC: 3E033XZ Introduction of Vasopressor into Peripheral Vein, Percutaneous Approach (ICD-10-PCS; 2022-02-03)
PROC: 6A550Z2 Pheresis of Platelets, Single (ICD-10-PCS; 2022-02-03)
PROC: 0D9670Z Drainage of Stomach with Drainage Device, Via Natural or Artificial Opening (ICD-10-PCS; 2022-02-03)
DX: S36.032A Major laceration of spleen, initial encounter (principal); I21.A1 Myocardial infarction type 2; S27.321A Contusion of lung, unilateral, initial encounter; R57.1 Hypovolemic shock; K66.1 Hemoperitoneum; I31.2 Hemopericardium, not elsewhere classified; J91.8 Pleural effusion in other conditions classified elsewhere; I42.9 Cardiomyopathy, unspecified; S22.43XA Multiple fractures of ribs, bilateral, initial encounter for closed fracture; D62 Acute posthemorrhagic anemia; I50.22 Chronic systolic (congestive) heart failure; J98.11 Atelectasis; S36.09XA Other injury of spleen, initial encounter; I11.0 Hypertensive heart disease with heart failure; E03.9 Hypothyroidism, unspecified; E88.09 Other disorders of plasma-protein metabolism, not elsewhere classified; D69.59 Other secondary thrombocytopenia; M54.6 Pain in thoracic spine; E78.5 Hyperlipidemia, unspecified; R00.1 Bradycardia, unspecified; I44.7 Left bundle-branch block, unspecified; R31.0 Gross hematuria; N32.0 Bladder-neck obstruction; I25.10 Atherosclerotic heart disease of native coronary artery without angina pectoris; S60.221A Contusion of right hand, initial encounter; S60.222A Contusion of left hand, initial encounter; S92.152A Displaced avulsion fracture (chip fracture) of left talus, initial encounter for closed fracture; K59.00 Constipation, unspecified; N32.89 Other specified disorders of bladder; I08.1 Rheumatic disorders of both mitral and tricuspid valves; V20.49XA Other motorcycle driver injured in collision with pedestrian or animal in traffic accident, initial encounter; Z28.310 Unvaccinated for COVID-19; Z79.899 Other long term (current) drug therapy; Z79.890 Hormone replacement therapy; Z23 Encounter for immunization; Z92.3 Personal history of irradiation; Z90.79 Acquired absence of other genital organ(s); Y92.410 Unspecified street and highway as the place of occurrence of the external cause; Z91.010 Allergy to peanuts; Z79.82 Long term (current) use of aspirin
CPT/HCPCS: 36415; 70450; 71045; 71260; 72125; 72170; 74177; 76604; 80048; 80053; 80306; 80320; 82805; 83735; 84100; 84484; 85025; 85027; 85610; 85730; 86850; 86891; 86900; 86901; 86920; 87070; 87205; 88305; 90715; 93005; 93306; 94002; 94003; 94760; 96361; 96365; 96366; 96375; 99291